=== PATIENT | female | born 1965 | race Caucasian/White ===

== ENCOUNTER 2023-11-02 12:58 | Emergency (ER) | payer BC ==
[2023-11-02] MEDS ORDERED: Sodium Chloride 0.9% 10 ML Syringe FLUSH PRN (13:13)
[2023-11-02 13:28] LABS: BASOPHILS ABSOLUTE AUTO 0.04 K/uL (0.00-0.20); BASOPHILS PERCENT AUTO 0.8 % (0.0-2.0); EOSINOPHILS ABSOLUTE AUTO 0.07 K/uL (0.00-0.50); EOSINOPHILS PERCENT AUTO 1.4 % (0.0-5.0); LYMPHOCYTES ABSOLUTE AUTO 1.79 K/uL (0.50-3.50); LYMPHOCYTES PERCENT AUTO 36.1 % (10.0-50.0); MEAN CORPUSCULAR HEMOGLOBIN 26.9 pg (28.2-33.3); MEAN CORPUSCULAR HGB CONC 33.3 g/dL (31.7-36.0); MEAN CORPUSCULAR VOLUME 80.8 fL (84.0-98.0); MONOCYTES PERCENT AUTO 8.1 % (2.0-14.0); NEUTROPHILS ABSOLUTE AUTO 2.66 K/uL (1.40-7.00); NEUTROPHILS PERCENT AUTO 53.6 % (45.0-80.0); PLATELET COUNT,PLT 237 K/uL (150-350); RED CELL DISTRIBUTION WIDTH 17.5 % (11.2-14.1)
[2023-11-02] MEDS: Pantoprazole 40 MG Vial IVPUSH ONE (13:29)
[2023-11-02] MEDS: Sodium Chloride 0.9% 1,000 ML IV ONE (13:29)
[2023-11-02] MEDS: Iopamidol 612 MG/ML 100 ML Bottle IVPUSH ONE (13:44)
[2023-11-02 13:49] LABS: ALANINE AMINOTRANSFERASE,ALT 22 U/L (12-78); ALBUMIN 3.8 g/dL (3.4-5.0); ALKALINE PHOSPHATASE 83 IU/L (46-116); ASPARTATE AMNIOTRANSFERASE,AST 20 U/L (15-37); BILIRUBIN TOTAL 0.4 mg/dL (0.2-1.0); BLOOD UREA NITROGEN,BUN 8 mg/dL (7-18); CALCIUM 8.3 mg/dL (8.5-10.1); CARBON DIOXIDE,CO2 24.8 mmol/L (21.0-32.0); CHLORIDE,CL 108 mmol/L (98-107); CREATININE 0.86 mg/dL (0.51-1.17); GLUCOSE RANDOM 100 mg/dL (70-99); LIPASE 47 U/L (16-77); POTASSIUM,K 3.2 mmol/L (3.5-5.1); PROTEIN TOTAL,TP 7.5 g/dL (6.4-8.2); SODIUM,NA 147 mmol/L (136-145)
[2023-11-02 13:50] LABS: ANION GAP 17.4 meq/L (7-15); ESTIMATED GFR 78 mL/min (>=60)
[2023-11-02 13:55] LABS: APPEARANCE,URINE SLIGHTLY CLOUDY; BILIRUBIN,URINE NEGATIVE (NEGATIVE); COLOR,URINE YELLOW; GLUCOSE,URINE NEGATIVE (NEGATIVE); KETONES,URINE NEGATIVE (NEGATIVE); LEUKOCYTE ESTERASE,URINE NEGATIVE (NEGATIVE); NITRITE,URINE NEGATIVE (NEGATIVE); OCCULT BLOOD,URINE NEGATIVE (NEGATIVE); PH,URINE 5.5 (5.0-9.0); PROTEIN,URINE NEGATIVE (NEGATIVE); UROBILINOGEN,URINE 0.2 E.U./dL (0.2-1.0)
== END 2023-11-02 14:45 | disposition home or self-care (01) ==
LOC: LL.ED 12:58
DX: F41.9 Anxiety disorder, unspecified (principal); K29.20 Alcoholic gastritis without bleeding; F10.220 Alcohol dependence with intoxication, uncomplicated
CPT/HCPCS: 36415; 74177; 80053; 81003; 83690; 84484; 85025; 93005; 96361; 96374; 99284-25; J2470; J7030; Q9967